=== PATIENT | female | born 1995 | race Caucasian/White ===

== ENCOUNTER → 2016-10-26 | Outpatient (CLI) | payer OTHER ==
[2016-10-26 18:46] LABS: PREG INTERNAL NEGATIVE QC NEG CLEAR BACKGROUND; PREG INTERNAL POSITIVE QC POS CONTROL LINE
== END | disposition home or self-care (01) ==
LOC: C.LABSPEC 14:38
PROVIDERS: ATTEND Family Medicine
DX: N91.2 Amenorrhea, unspecified (principal)

== ENCOUNTER → 2016-11-15 | Outpatient (CLI) | payer OTHER ==
[2016-11-15 12:20] LABS: BASO % 0.5 %; BASO ABS # 0.05 K/uL (0-0.2); COMPLETE YES; EOS % 1.1 %; HEMATOCRIT 40.7 % (37-47); IG% 0.2 %; LYMPH % 28.1 %; LYMPH ABS # 2.71 K/uL (1.2-3.4); MEAN CELL VOLUME 85.9 fL (80-100); MEAN CORPUSCULAR HGB CONC 34.9 g/dl (32-36); MEAN PLATELET VOLUME 10.4 fL (7.4-10.4); MONO % 7.5 %; NEUT % 62.6 %; PLATELET COUNT 335 K/uL (130-400); RED BLOOD COUNT 4.74 M/uL (4.2-5.4); WHITE BLOOD COUNT 9.63 K/uL (4.8-10.8)
[2016-11-15 15:26] LABS: URINE APPEARANCE CLEAR (CLEAR); URINE BILIRUBIN NEG (NEG); URINE COLOR YELLOW; URINE NITRITE NEG (NEG); URINE SPECIFIC GRAVITY 1.021 (1.000-1.030); UROBILINOGEN NEG (NEG)
[2016-11-15 15:32] LABS: MANUAL MICROSCOPIC REQUIRED? NO; REVIEW REQ? NO
[2016-11-19 11:57] LABS: CHLAMYDIA TRACH RNA*** NOT DETECTED (NOT DETECTED); GC (NEIS GONORRHOEAE)RNA** NOT DETECTED (NOT DETECTED)
== END | disposition home or self-care (01) ==
LOC: C.LAB1850 10:55
PROVIDERS: ATTEND Obstetrics & Gynecology
DX: Z34.00 Encounter for supervision of normal first pregnancy, unspecified trimester (principal)

== ENCOUNTER → 2017-01-01 | Outpatient (CLI) | payer OTHER ==
[2017-01-01 18:20] LABS: GTGD 50 Grams
[2017-01-04 13:23] LABS: AFP CONCENTRATION 20.9 NG/ML; AFP MULTIPLE OF MEDIAN 0.84; AFPTS GESTATIONAL AGE 16.3 WEEKS; AFPTS INSULIN DEP DIABETIC? NO; AFPTS MATERNAL WT 245 LBS; ALPHA-FETOPROTEIN RACE CAUCASIAN=W; HISTORY OF NTD NO; INHIBIN A 118 PG/ML; INHIBIN A MOM 0.87; REPEAT SAMPLE? NO; hCG MULTIPLE OF MEDIAN 1.12
== END | disposition home or self-care (01) ==
LOC: C.LAB1850 16:52
PROVIDERS: ATTEND Obstetrics & Gynecology
DX: Z34.00 Encounter for supervision of normal first pregnancy, unspecified trimester (principal)

== ENCOUNTER → 2017-01-30 | Outpatient (CLI) | payer OTHER | END | disposition home or self-care (01) | LOC: C.PAPS 09:26 | PROVIDERS: ATTEND Obstetrics & Gynecology | DX: Z34.02 Encounter for supervision of normal first pregnancy, second trimester (principal) ==

== ENCOUNTER → 2017-03-28 | Outpatient (CLI) | payer OTHER ==
[2017-03-28 17:02] LABS: HEMATOCRIT 36.7 % (37-47)
[2017-03-28 19:22] LABS: GTGD 50 Grams
== END | disposition home or self-care (01) ==
LOC: C.LAB1850 15:31
PROVIDERS: ATTEND Obstetrics & Gynecology
DX: Z34.02 Encounter for supervision of normal first pregnancy, second trimester (principal)

== ENCOUNTER → 2017-03-28 | Outpatient (CLI) | payer OTHER ==
[2017-03-28 18:40] LABS: URINE APPEARANCE CLEAR (CLEAR); URINE BILIRUBIN NEG (NEG); URINE COLOR YELLOW; URINE EPITHELIAL CELL AUTO >30 /lpf (0-5); URINE NITRITE NEG (NEG); UROBILINOGEN NEG (NEG)
[2017-03-28 18:44] LABS: MANUAL MICROSCOPIC REQUIRED? NO; REVIEW REQ? NO
== END | disposition home or self-care (01) ==
LOC: C.LABSPEC 18:03
PROVIDERS: ATTEND Obstetrics & Gynecology
DX: Z34.02 Encounter for supervision of normal first pregnancy, second trimester (principal)

== ENCOUNTER → 2017-05-24 | Outpatient (CLI) | payer OTHER | END | disposition home or self-care (01) | LOC: C.LABSPEC 16:29 | PROVIDERS: ATTEND Obstetrics & Gynecology | DX: Z34.02 Encounter for supervision of normal first pregnancy, second trimester (principal) ==

== ENCOUNTER 2017-06-18 04:14 | Inpatient (IN) | payer OTHER ==
[~2017-06-18] VITALS: Ht 167.6 cm; Wt 125.9 kg
[2017-06-18 05:13] VITALS: Ht 167.6 cm; Wt 125.9 kg
[2017-06-18 05:44] LABS: HEMATOCRIT 38.7 % (37-47); MEAN CELL VOLUME 86.8 fL (80-100); MEAN CORPUSCULAR HEMOGLOBIN 29.6 pg (25-34); MEAN CORPUSCULAR HGB CONC 34.1 g/dl (32-36); MEAN PLATELET VOLUME 11.8 fL (7.4-10.4); PLATELET COUNT 250 K/uL (130-400); RED BLOOD COUNT 4.46 M/uL (4.2-5.4); WHITE BLOOD COUNT 13.71 K/uL (4.8-10.8)
[2017-06-18] MEDS ORDERED: BUTORPHANOL TARTRATE 1 MG/ML VIAL ONE (05:44)
[2017-06-18] MEDS ORDERED: BUTORPHANOL TARTRATE 1 MG/ML VIAL IV STA (05:45)
[2017-06-18] MEDS: LACTATED RINGER'S 1000ML 1,000 ML IV SCH ×3 (06:30→11:20)
[2017-06-18] MEDS ORDERED: BUTORPHANOL TARTRATE 1 MG/ML VIAL IV PRN (07:45)
[2017-06-18] MEDS ORDERED: EpHEDrine SULFATE INJ 50 MG/ML AMP ONE (08:36)
[2017-06-18] MEDS ORDERED: BUPIVACAINE 0.25% 30 ML VIAL ONE (08:36)
[2017-06-18] MEDS ORDERED: FENTANYL 2MCG/ML ROPIV 1.25MG/ML 100ML BAG EPI ONE (08:36)
[2017-06-18] MEDS ORDERED: FENTANYL CITRATE INJ 50 MCG/1 ML 2 ML VIAL ONE (08:37)
[2017-06-18] MEDS ORDERED: NALOXONE HCL INJ 1 MG in SODIUM CHLORIDE 0.9% 1000ML 1,000 ML IV PRN (09:46)
[2017-06-18] MEDS ORDERED: LACTATED RINGER'S 1000ML 500 ML IV PRN (09:46)
[2017-06-18] MEDS ORDERED: ONDANSETRON INJ 2 MG/ML 2 ML VIAL IV PRN (10:00)
[2017-06-18] MEDS ORDERED: FENTANYL 2MCG/ML ROPIV 1.25MG/ML 100ML BAG EPI PRN (10:00)
[2017-06-18] MEDS ORDERED: EpHEDrine SULFATE INJ 50 MG/ML AMP IV PRN (10:00)
[2017-06-18] MEDS ORDERED: NALBUPHINE HCL INJ 10 MG/ML AMP IV PRN (10:00)
[2017-06-18] MEDS ORDERED: DiphenhydrAMINE HCL 50 MG/ML VIAL IV PRN (10:00)
[2017-06-18] MEDS ORDERED: NALOXONE HCL INJ 0.4 MG/1 ML VIAL/CARP IV PRN (10:00)
[2017-06-18] MEDS ORDERED: OXYTOCIN 30 UNITS/500ML NSS IV ONE (10:52)
[2017-06-18] MEDS ORDERED: OXYTOCIN 30 UNITS/500ML NSS IV PRN (13:00)
[2017-06-18] MEDS ORDERED: BENZOCAINE 20% AER SPR 82.5 GM CAN EXT PRN (13:00)
[2017-06-18] MEDS ORDERED: LANOLIN OINT EXT PRN ×2 (13:00)
[2017-06-18] MEDS ORDERED: OXYCODONE/ACETAMINOPHEN 5-325 TAB PO PRN (13:00)
[2017-06-18] MEDS ORDERED: HYDROCORTISONE ACETATE 25 MG SUPP PR PRN (13:00)
[2017-06-18] MEDS ORDERED: ACETAMINOPHEN 325 MG TAB PO PRN (13:00)
[2017-06-18] MEDS ORDERED: SUPERCREAM 0.870 % 15GM JAR EXT PRN (13:00)
--- NOTE | 2017-06-18 14:39 | Anesthesia Procedure Note ---
Anesthesia Epidural Removal Nt Date & Time Jun 18, 2017 at 14:39 Vital Signs Pain Intensity: 8.0 Notes Mental Status: alert / awake / arousable, participated in evaluation Nausea / Vomiting: adequately controlled Pain: adequately controlled Airway Patency, RR, SpO2: stable & adequate BP & HR: stable & adequate Hydration State: stable & adequate Neuraxial Anesthesia: was administered Anesthetic Complications: no major complications apparent, pt satisfied with anesthetic care Epidural: removed without complications, with tip intact
[2017-06-18 16:00] VITALS: BP 113/58; PULSE 80; TEMP 37.1; O2SAT 98
--- NOTE | 2017-06-18 17:54 | DELIVERY SUMMARY ---
DATE OF OPERATION: 06/18/2017 VAGINAL DELIVERY SUMMARY PREDELIVERY DIAGNOSES: 1. A 21-year-old G1, P0 at 40 weeks 2 days. 2. Spontaneous labor. POSTDELIVERY DIAGNOSES: Same. PROCEDURE: Spontaneous vaginal delivery and repair of first degree perineal laceration. FINDINGS: Viable female . Weight 7 pounds 13 ounces. Apgars 9 and 9. ESTIMATED BLOOD LOSS: 300 mL. DESCRIPTION OF DELIVERY: The patient progressed to complete with epidural anesthesia. She then began to push. She spontaneously vaginally delivered a viable female from the cephalic presentation. The head delivered followed by the anterior shoulder followed by the posterior shoulder followed by the body. The baby was placed on mother's abdomen and a spontaneous cry was heard. The cord was doubly clamped and cut in a delayed clamping fashion. Cord blood was obtained. The placenta was then delivered spontaneously intact with a 3-vessel cord. Pitocin was given. The uterus and vagina were swept of all clots and debris. The uterus began to firm. The cervix, vagina and perineum were inspected for lacerations and a first degree perineal laceration was noted. This was repaired in standard fashion with 3-0 Vicryl. Excellent hemostasis was observed. The mother and baby tolerated the delivery well and recovered in stable and good condition in the room. I attest to the content of the Intraoperative Record and any orders documented therein. Any exception s are noted below.
[2017-06-18 19:50] VITALS: BP 127/84; TEMP 36.9; O2SAT 98
[2017-06-18] MEDS: DOCUSATE SODIUM 100 MG CAP PO SCH (20:00)
[2017-06-18 23:40] VITALS: BP 129/80; PULSE 93; TEMP 36.8; O2SAT 98
[2017-06-18] MEDS: IBUPROFEN 600 MG TAB PO PRN (23:49)
[2017-06-19 04:10] VITALS: BP 115/79; PULSE 84; TEMP 36.5; O2SAT 98
--- NOTE | 2017-06-19 06:49 | Progress Note ---
Subjective Jun 19, 2017. Subjective conversation w/ patient, physical exam, chart review, lab review Ambulation: ambulating normally Voiding: no voiding problems Passing Gas: Yes Diet Tolerance: Regular Diet Lochia: Moderate Feeding Type: Breast Feeding Pain: 3/10 Comment: Pt seen and examined at bedside. Reports no acute overnight events. Review of Systems Respiratory: No shortness of breath, No dyspnea on exertion Cardiac: No chest pain, No edema, No palpitations Abdomen: No nausea, No vomiting, No diarrhea, No constipation Female : No dysuria denies headache Objective Vital Signs Date Time Temp Pulse Resp B/P (MAP) Pulse Ox O2 Delivery O2 Flow Rate FiO2 06/19/17 04:10 36.5 84 16 115/79 (91) 98 Room Air 06/18/17 23:40 36.8 93 16 129/80 (96) 98 Room Air 06/18/17 23:40 Room Air 06/18/17 19:50 36.9 18 127/84 (98) 98 Room Air 06/18/17 16:00 Room Air 06/18/17 16:00 37.1 80 18 113/58 (76) 98 Room Air Physical Exam General Appearance: WELL-APPEARING, WD/WN, NO APPARENT DISTRESS Respiratory/Chest: chest non-tender, lungs clear, normal breath sounds, no respiratory distress Cardiovascular: regular rate, rhythm, no edema, no gallop, no JVD Abdomen: normal bowel sounds, soft Fundus: Firm, Tender, Relation to Umbilicus (2 below u) Extremities: normal range of motion, non-tender, normal inspection, no pedal edema, no calf tenderness Laboratory Results Last 24 Hours Test 06/19/17 04:44 Assessment and Plan Post- Day#: 1 Continue Routine Care: Pt is doing well clinically. - VS reviewed and WNL. - Encourage ambulation, monitor and control pain with Motrin PRN, continue regular diet, monitor lochia - Continue support Resident Physician Supervision Note: I was present with Dr. More during the history and exam. I discussed the case with the resident and agree with the findings and plan as documented in the note. Any exceptions or clarifications are listed here: PPD#1 doing well. Continue routine care. Documented By: Sandra Vu Resident Tracking Resident Involvement: Resident Care Provided Care Provided: [facility]
[2017-06-19 06:52] LABS: HEMATOCRIT 33.3 % (37-47)
[2017-06-19 07:40] VITALS: BP 120/80; PULSE 84; TEMP 36.6
[2017-06-19] MEDS: DOCUSATE SODIUM 100 MG CAP PO SCH ×2 (07:41→19:48)
[2017-06-19 13:10] VITALS: BP 131/80; PULSE 78; TEMP 36.8
[2017-06-19] MEDS: IBUPROFEN 600 MG TAB PO PRN ×2 (16:52→22:23)
[2017-06-19] MEDS ORDERED: BISACODYL 5 MG TABEC PO SCH (20:00)
[2017-06-20 00:20] VITALS: BP 109/71; PULSE 79; TEMP 36.6
--- NOTE | 2017-06-20 04:59 | Discharge Instructions ---
Discharge Instructions Date of Service Jun 20, 2017. Admission Reason for Admission: LABOR Discharge Discharge Diagnosis / Problem: LABOR Discharge Goals Goal(s): Routine recovery after delivery Medications Continue Dispensed Medications: supercream, dermaplast, tucks, lansinoh Activity Recommendations Activity Limitations: per Instructions/Follow-up section . Instructions / Follow-Up Instructions / Follow-Up ACTIVITY RECOMMENDATIONS: * Gradual return to full activity over the next 2-3 weeks. * No lifting - nothing heavier than baby over the next 2-3 weeks. * Do not engage in vigorous exercise, sexual activity or sports until cleared by your physician. * Do not drive or operate any motorized equipment until cleared by your physician. * You may shower/bathe daily. MEDICATIONS: For discomfort or pain, you may use Acetaminophen (Tylenol), Ibuprofen (Advil), or Naproxen (Aleve) following the package directions. For constipation you may use Colace following the package directions. BREAST CARE: If you are not breast feeding: * Wear a supportive bra 24 hours a day for one to two weeks. * Avoid stimulating your breasts and nipples as much as possible during the first few weeks after delivery. * When taking a shower, have the warm water hit your back, not breasts. * When your breasts feel full, apply ice packs. Usually three to four times a day helps ease the discomfort. * Take a mild pain medication (Tylenol / Motrin) when you are uncomfortable. If breast feeding: * Use breast milk to lubricate nipples. Lansinoh cream may be used for sore nipples. You do not need to remove cream prior to breast feeding. If using a different brand of cream, check the label for directions regarding removal of cream prior to nursing. * Wear a supportive bra. * If having problems with breasts or breast feeding, call a case consultant or your health care provider. EPISIOTOMY CARE: After delivery, if you have an episiotomy (stitches), the following steps will ease discomfort and aid healing. * For the first 24 hours after delivery, place ice packs next to your episiotomy to help reduce swelling. * After the first 24 hour-period, sitz baths, either portable or in the tub, are suggested. A shower with a shower arm sprayed over the episiotomy may be comforting. * Sandra care should be done after each voiding and bowel movement. Squirt warm water from a plastic bottle over the perineum (region of the body between the anus and urinary opening) and pat dry. * Use Dermoplast to ease discomfort. Shake container. [place] directly over the episiotomy. Place a Tucks on a clean sanitary pad next to your episiotomy. SPECIAL CARE INSTRUCTIONS: When you are discharged from the hospital, it is important for you to follow the instructions listed below: * During the first week at home, you should be able to care for yourself and your baby. In addition, the usual light household activities are encouraged. * Limit your activities to the way you feel. Do not try to clean the house or move furniture. Be sensible. * If you actively engage in sports and have done so up until the time of your delivery, you may resume these activities as soon as you feel able. This may take up to one month or even longer. Use good judgment. * Continue to take your vitamins for at least six weeks after the of your baby. * Your diet need not be limited unless you were on a special diet before your delivery. Breast-feeding mothers need around 2500 calories per day and at least 64-80 ounces of fluid per day (8 to 10 glasses). * You should eat foods from the four major food groups. Crash diets or fad diets are to be avoided. Eating lean meats, fresh fruits and vegetables, low-fat dairy products, high fiber foods and a regular exercise program, will help you get back to your pre- weight without putting your health at risk. * Constipation is sometimes a problem after delivery. Take a mild laxative as needed. If breast feeding, Milk of Magnesia is acceptable to use. You may use a suppository or Fleets enema if no episiotomy. * A daily shower or tub bath is suggested. Be sure to thoroughly and gently dry the perineum. * A bloody vaginal discharge will usually continue until around four weeks post . A small amount of bleeding may continue for as long as six weeks. Vaginal discharge changes from the bright red bleeding after delivery to pink then brownish and finally yellowish-pink before becoming white and disappearing. * Bleeding may increase with activity. Your first period may come in 4-8 weeks. If you are breast feeding, your period may be delayed even longer. * [place] (sex) can begin whenever both you and your partner feel comfortable and do not have any form of genital infection. It is recommended that you wait at least six weeks for internal and external healing to occur. If you have questions, please talk to your health care practitioner. A condom should be used to prevent infection and . * Foreplay, gentle intercourse and lubrication is very important the first several times to prevent pain. A water-based lubricant such as K-Y jelly or Astroglide may be used. * If you have RH negative blood and your baby is RH positive, you will receive RHOGAM by injection prior to discharge. The nurse will give you a card to keep with you that has the date and place that you received RHOGAM after delivery. * During your care, you had a Rubella screen done to check for the presence of rubella antibodies in your blood. If your test was negative, you will receive a Rubella vaccine prior to discharge. This vaccine may cause a fever, soreness at the injection site and flu-like symptoms. If these symptoms persist, notify your health care practitioner. is not advised for one month after a Rubella vaccine. * Verbalizes understanding of car seat law as reviewed with patient nursing. * Car Seat hand-out given and reviewed with patient by nursing. * Shaken baby information reviewed with patient by nursing. Call you doctor if: * Heavy bleeding (saturating several pads an hour) or passing clots the size of your fist. * A fever >101 degrees F (38.3 degrees C) on two occasions four hours apart and /or chills. * Unusual pain in the pelvic or vaginal areas. * "Baby Blues" lasting longer than two weeks. If you have any questions or concerns, call your health care practitioner at . FOLLOW UP VISIT: * Please call the office at to schedule a 6 week examination. It is important you keep this appointment. It is important for you to make arrangements for either yearly or twice yearly check-ups thereafter. Current Hospital Diet Patient's current hospital diet: Regular OB Diet Discharge Diet Recommended Diet: Regular Diet Pending Studies Studies pending at discharge: no Medical Emergencies . Who to Call and When: Medical Emergencies: If at any time you feel your situation is an emergency, please call 911 immediately. . Non-Emergent Contact Non-Emergency issues call your: Primary Care Provider . . "Provider Documentation" section prepared by Shannan More. . VTE Core Measure Inpt VTE Proph given/why not?: SCD's Resident Tracking Resident Involvement: Resident Care Provided Care Provided: Adult Hospital Medicine
--- NOTE | 2017-06-20 06:58 | Progress Note ---
Subjective Jun 20, 2017. Subjective conversation w/ patient, physical exam Ambulation: ambulating normally Voiding: no voiding problems Passing Gas: Yes Diet Tolerance: Regular Diet Lochia: Small Feeding Type: Breast Feeding Review of Systems Breast: No see HPI, No breast lump, No change in shape, No nipple discharge, No breast pain, No problem reported Female : No see HPI, No dysuria, No urinary frequency, No hematuria, No incontinence, No abnormal vaginal bleeding, No vaginal discharge, No problem reported Objective Vital Signs Date Time Temp Pulse Resp B/P (MAP) Pulse Ox O2 Delivery O2 Flow Rate FiO2 06/20/17 00:20 Room Air 06/20/17 00:20 36.6 79 16 109/71 (84) Room Air 06/19/17 16:55 Room Air 06/19/17 13:10 36.8 78 20 131/80 (97) Room Air 06/19/17 07:40 36.6 84 20 120/80 (93) Room Air 06/19/17 07:40 Room Air Physical Exam General Appearance: WELL-APPEARING, NO APPARENT DISTRESS Abdomen: normal bowel sounds, soft Fundus: Firm, Non-Tender, Relation to Umbilicus (2 below U) Extremities: no calf tenderness Assessment and Plan Post- Day#: 2 Continue Routine Care: stable course discharge to home folllow up in 6 weeks.
[2017-06-20] MEDS: DOCUSATE SODIUM 100 MG CAP PO SCH (08:10)
[2017-06-20 08:15] VITALS: BP 117/83; PULSE 78; TEMP 36.6; O2SAT 100
[2017-06-20 12:04] VITALS: BP_DIAS 83; PULSE 78; TEMP 36.6
== END 2017-06-20 12:04 | disposition home or self-care (01) | DRG 775 ==
LOC: C.LD 04:14 → C.OPB 04:14 → C.LD 05:08 → C.OPB 05:08 → C.OBG 16:56
PROVIDERS: ADMIT Obstetrics & Gynecology; ATTEND Obstetrics & Gynecology
PROC: 0HQ9XZZ Repair Perineum Skin, External Approach (ICD-10-PCS; principal; 2017-06-18)
PROC: 10E0XZZ Delivery of Products of Conception, External Approach (ICD-10-PCS; principal; 2017-06-18)
DX: O48.0 Post-term pregnancy (principal); Z68.41 Body mass index [BMI] 40.0-44.9, adult; O99.52 Diseases of the respiratory system complicating childbirth; J45.909 Unspecified asthma, uncomplicated; O70.0 First degree perineal laceration during delivery; O99.214 Obesity complicating childbirth; E66.01 Morbid (severe) obesity due to excess calories; Z37.0 Single live birth; Z3A.40 40 weeks gestation of pregnancy

== ENCOUNTER 2019-06-11 07:09 | Inpatient (IN) ==
--- NOTE | 2019-06-11 08:24 | History & Physical Report ---
Date of Service June 11, 2019 Assessment & Plan (1) Normal labor: Patient now in active labor at 6cm with regular contractions. Pitocin started. Anesthesia consult placed for epidural placement. Anticipate . heart tracing is reassuring at category I. continue to monitor. History of Present Illness Primary Care Provider: Self, Referred at 38w 2d dated via 1st trimester U/S with [facility] of 06/22/19 . She began feeling regular contractions this morning, occurring every 7 minutes and lasting for 1 minute. She called into L&D as they became increasingly painful and told to come in for evaluation. Was seen in the office by Dr. Felder yesterday and has experienced a small amount vaginal bleeding after cervical check. Denies fluid loss but continues to feel movement. regnancy is complicated by maternal obesity. 32 week growth u/s revealed pyelectasis, for which she saw Dr. Kam in [place]. Only medication is PNV. Labs Blood type: O Positive Antibody Screen: neg H.9 g/dL Hct: 38.2 % Plt: 343 K/uL Rubella: Immune VDRL/RPR: non reactive Gonorrhea: neg Chlamydia: neg GBS: neg HIV: neg HbsAq: neg Glucose Tolerance x2: WNL Allergies Allergy/AdvReac Type Severity Reaction Status Date / Time bee venom protein (honey bee) Allergy Verified 06/10/19 15:53 No Known Drug Allergies Allergy Verified 06/10/19 15:53 Patient History Medical History Anxiety stopped her med with positive test History of asthma History of pertussis History of varicella Surgical History [place] teeth removed age 14 Family History Father No problems noted. Other Hypertension Social History Preferred Language: [place] [employer] Required: No Beliefs That Will Affect Care: None marital status: Current Living Situation: Spouse Feels Safe at Home: Yes Safety Concerns: Feels Safe At This Time Smoking Status: Never smoker Second Hand Exposure: No ; Hx Alcohol Use: Yes (when not ) Alcohol type: hard liquor Hx Substance Use: No Review of Systems no fever, no chills and no sweats no worsening vision no cough and no dyspnea no chest pain, no palpitations and no calf pain no nausea, no vomiting, no constipation and no diarrhea/loose stools no dysuria and no urinary frequency Physical Exam Constitutional: WD/WN, vitals as above Eyes: + anicteric sclerae Neck: normal visual inspection Respiratory: normal respiratory effort, lungs clear to auscultation does not use accessory muscles Auscultation: no crackles, no rales, no wheezes and no pleural rub Cardiovascular: Rate/Rhythm: regular rate and regular rhythm Heart Sounds: normal S1 and normal S2; no gallop, no murmur and no cardiac rub Gastrointestinal (Abdomen): Gravid. Uterus at term; + heart tones; vertex position Neurologic: awake; no focal motor deficits Psychiatric: A+Ox3, euthymic affect Genitourinary: OB Exam Monitor Tracing: + external FHT monitor used Cervical Exam: 6 cm/ 100 % effacement/+1 (performed by Dr. Felder 06/11/19) Results & Data Vital Signs (Past 12 Hours) Vital Signs Temp Pulse Resp BP 06/11/19 07:55 36.9 C 87 20 129/74 Monitoring External Monitor Baseline HR: 140s Variability: moderate Accelerations: 2, 15x15 in 20 min Decelerations: none Category I Tocodynamometer Contractions: regular every 7 min Supervising Physician Co-Signing Physician Notes Resident Physician Supervision Note: I was present with Dr. uSllivan during the history and exam. I discussed the case with the resident and agree with the findings and plan as documented in the note. Any exceptions or clarifications are listed here: The patient is a 23-year-old 2 para 1 at38+ weeks gestational age admitted in active abor. Patient's course remarkable for bilateral pyelectasis diagnosed on ultrasound. Patient also noted to have echogenic cardiac foci on the fetus. Patient had declined cell free DNA screening as well as a quad screen. Patient had a maternal- medicine consult who recommended following the pyelectasis. Patient's ultrasound at 36 weeks showed bilateral pyelectasis right greater than left with the greater side being 11 mm. Pediatrics notified of the patient's admission and course. Anticipate Documented By: Carlos Felder Jr, MD, FACOG
[2019-06-11] MEDS: LACTATED RINGER'S 1,000 ML IV PRN ×2 (10:25→11:14)
[2019-06-11] MEDS ORDERED: ePHEDrine sulfate 50 MG/ML AMP ONE (10:40)
[2019-06-11] MEDS ORDERED: BUPIVACAINE 0.25% 30 ML VIAL ONE (10:40)
[2019-06-11] MEDS ORDERED: OXYTOCIN 30 UNITS/500 ML BAG IV PRN ×2 (10:40→13:01)
[2019-06-11] MEDS ORDERED: fentaNYL citrate 100 MCG/2 ML VIAL ONE (10:41)
[2019-06-11] MEDS ORDERED: fentaNYL 2MCG/ML ROPIV 1.25MG/ML 100 ML BAG EPI ONE (10:42)
[2019-06-11 10:55] LABS: Hematocrit (blood only) 39.5 % (37-47); Hemoglobin 13.3 g/dL (12.0-16.0); Mean Corpuscular Volume 85.1 fL (80-100); Platelet Count 256 K/uL (130-400); RDW Standard Deviation 46.7 fL (36.4-46.3); Red Blood Count 4.64 M/uL (4.2-5.4); White Blood Count 12.24 K/uL (4.8-10.8)
[2019-06-11 10:57] LABS: Mean Corpuscular Hgb Conc 33.7 g/dL (32-36)
--- NOTE | 2019-06-11 11:57 | Delivery Summary ---
Vaginal Delivery Summary Date of Service June 11, 2019 Vaginal Delivery Summary The patient is a 23-year-old 2 para 1 at 38+ weeks gestational age who presents labor and delivery in active labor. Contractions had begun earlier in the evening and increased in intensity. Since course has been remarkable for bilateral pyelectasis diagnosed at her anatomy ultrasound at 20 weeks. Patient was also noted to have an echogenic cardiac foci. The patient had a maternal- medicine consult in [place]. Patient declined cell free DNA screening or quad screen. Ultrasound in [place] confirmed the pyelectasis and recommendation was to follow conservatively. Patient had a repeat scan at 36 weeks which showed bilateral pyelectasis right greater than left. Otherwise the patient has had a benign course. The patient was observed on labor and delivery and cervical change was noted and she was admitted. The patient was 6 cm 100% effaced and 0 station with intact membranes. The patient requested an epidural. During placement for epidural the patient had an uncontrollable urge to push and precipitously delivered a viable female infant in bed Apgars of 8 and 9. Delivering physician was not present at that time. Upon arrival the patient was placed in the dorsolithotomy position placenta was delivered spontaneously inspection of the perineum showed a periurethral and midline superficial laceration which was hemostatic. Sutures were not placed approximate blood loss for the procedure 300 cc sponge and needle count was correct.
[2019-06-11] MEDS ORDERED: DIPHTHERIA/TETANUS/PERTUSSIS 0.5 ML SYR/VIAL IM ONE (13:01)
[2019-06-11] MEDS ORDERED: HYDROCORTISONE ACETATE 25 MG SUPP PR PRN (13:01)
[2019-06-11] MEDS ORDERED: SUPERCREAM 0.870% 15 GM JAR EXT PRN (13:01)
[2019-06-11] MEDS ORDERED: BENZOCAINE 20% AER SPR 82.5 GM CAN EXT PRN (13:01)
[2019-06-11] MEDS: IBUPROFEN 600 MG TAB PO PRN (15:24)
[2019-06-11] MEDS: ACETAMINOPHEN 325 MG TAB PO PRN (17:03)
[2019-06-11] MEDS: DOCUSATE SODIUM 100 MG CAP PO SCH (20:54)
[2019-06-12] MEDS: IBUPROFEN 600 MG TAB PO PRN ×4 (03:43→20:50)
--- NOTE | 2019-06-12 06:51 | Obstetrical Progress Note ---
Date of Service <Margarette Sullivan MD - Last Filed: 06/12/19 06:53> June 12, 2019 Assessment & Plan <Margarette Sullivan MD - Last Filed: 06/12/19 06:53> (1) Status post vaginal delivery: NIA is a 23 yo on PPD 1 after a precipitous at term - GBS -, Blood Type O+, Rubella immune -Vitals reviewed and WNL -patient is doing clinically well encourage ambulation, provide analgesia as needed, monitor lochia - After discharge will have [address] Felder. Subjective <Margarette Sullivan MD - Last Filed: 06/12/19 06:53> Ambulation: ambulating normally Voiding: no voiding problems Passing Gas:: No Diet Tolerance:: regular diet Lochia:: Moderate Feeding Type:: breast feeding Current Pain Level(1-10): 3 examined at bedside Constitutional: no fever, no chills and no sweats Eyes: no worsening vision Respiratory: no cough and no dyspnea Cardiovascular: no chest pain, no palpitations, no edema and no calf pain Breast: no breast pain Gastrointestinal: no nausea and no vomiting Genitourinary (female): no dysuria and no urinary frequency Neurologic: no headache(s) Physical Exam <Margarette Sullivan MD - Last Filed: 06/12/19 06:53> Constitutional WD/WN, vitals as above no acute distress Respiratory normal respiratory effort, lungs clear to auscultation does not use accessory muscles Auscultation: no crackles, no rales, no rhonchi, no wheezes and no pleural rub Cardiovascular Rate/Rhythm: regular rate and regular rhythm Heart Sounds: normal S1 and normal S2; no gallop, no murmur and no cardiac rub Extremities: no calf tenderness and no pedal edema Gastrointestinal (Abdomen) Inspection/Auscultation: normal bowel sounds; abdomen not distended Percussion/Palpation: abdomen soft Genitourinary Uterus: fundus firm, palpable 1 cm below the uterus Results & Data <Margarette Sullivan MD - Last Filed: 06/12/19 06:53> Vital Signs (Past 12 Hours) Vital Signs Temp Pulse Resp BP Pulse Ox 06/12/19 04:30 36.6 C 83 18 131/85 06/11/19 23:25 36.6 C 76 18 118/69 06/11/19 19:20 36.7 C 90 18 132/79 99 <Carlos Felder Jr, MD, FACOG - Last Filed: 06/12/19 08:03> Co-Signing Physician Notes Resident Physician Supervision Note: I was present with Dr. Sullivan during the history and exam. I discussed the case with the resident and agree with the findings and plan as documented in the note. Any exceptions or clarifications are listed here: routine care, doing well. Documented By: Carlos Felder Jr, MD, FACOG
[2019-06-12 07:20] LABS: Hematocrit (blood only) 34.4 % (37-47); Hemoglobin 11.2 g/dL (12.0-16.0); Mean Corpuscular Hgb Conc 32.6 g/dL (32-36); Mean Corpuscular Volume 86.4 fL (80-100); Platelet Count 222 K/uL (130-400); RDW Coefficient of Variation 15.2 % (11.5-14.5); RDW Standard Deviation 47.9 fL (36.4-46.3); Red Blood Count 3.98 M/uL (4.2-5.4); White Blood Count 10.79 K/uL (4.8-10.8)
[2019-06-12] MEDS: PRENATAL VITAMIN 1 TAB PO SCH (08:21)
[2019-06-12] MEDS: DOCUSATE SODIUM 100 MG CAP PO SCH ×2 (08:21→20:50)
[2019-06-12] MEDS: ACETAMINOPHEN 325 MG TAB PO PRN ×2 (16:54→23:17)
[2019-06-12] MEDS ORDERED: BISACODYL 5 MG TABEC PO SCH (20:00)
[2019-06-13] MEDS: IBUPROFEN 600 MG TAB PO PRN (05:53)
--- NOTE | 2019-06-13 06:30 | Obstetrical Progress Note ---
Date of Service <Margarette Sullivan MD - Last Filed: 06/13/19 06:30> June 13, 2019 Assessment & Plan <Margarette Sullivan MD - Last Filed: 06/13/19 06:30> (1) Status post vaginal delivery: NIA is a 23 yo on PPD 2 after a precipitous at term discharge instructions reviewed. ready for d/c - After discharge will have [address] Felder. Subjective <Margarette Sullivan MD - Last Filed: 06/13/19 06:30> Ambulation: ambulating normally Voiding: no voiding problems Passing Gas:: Yes Diet Tolerance:: regular diet Lochia:: Small Feeding Type:: breast feeding Current Pain Level(1-10): 1 examined at bedside Physical Exam <Margarette Sullivan MD - Last Filed: 06/13/19 06:30> Constitutional WD/WN, vitals as above no acute distress Eyes + anicteric sclerae Neck normal visual inspection Respiratory normal respiratory effort, lungs clear to auscultation does not use accessory muscles Auscultation: no crackles, no rales, no rhonchi, no wheezes and no pleural rub Cardiovascular Rate/Rhythm: regular rate and regular rhythm Heart Sounds: normal S1 and normal S2; no gallop, no murmur and no cardiac rub Extremities: no calf tenderness and no pedal edema Gastrointestinal (Abdomen) Inspection/Auscultation: normal bowel sounds; abdomen not distended Percussion/Palpation: abdomen soft Neurologic awake; no focal motor deficits Psychiatric A+Ox3, euthymic affect Genitourinary Uterus: firm; fundus palpable 1 cm below umbilicus Results & Data <Margarette Sullivan MD - Last Filed: 06/13/19 06:30> Vital Signs (Past 12 Hours) Vital Signs Temp Pulse Resp BP 06/13/19 00:15 36.5 C 75 18 125/79 <Radha Orellana MD, FACOG - Last Filed: 06/13/19 08:08> Co-Signing Physician Notes Resident Physician Supervision Note: I interviewed and examined the patient. Discussed with Dr. Sullivan and agree with findings and plan as documented in the note. Any exceptions or clarifications are listed here: [None] Documented By: Radha Orellana MD, FACOG
[2019-06-13] MEDS: DOCUSATE SODIUM 100 MG CAP PO SCH (08:22)
[2019-06-13] MEDS: PRENATAL VITAMIN 1 TAB PO SCH (08:22)
[2019-06-13 09:06] LABS: Hematocrit (blood only) 37.1 % (37-47); Hemoglobin 12.2 g/dL (12.0-16.0)
== END 2019-06-13 12:40 | disposition home or self-care (01) | DRG 806 ==
LOC: OPB 07:09 → 4S1 07:14 → 4S2 15:30